=== PATIENT | female | born 1965 | race Caucasian/White ===

== ENCOUNTER 2017-04-10 16:23 | Emergency (ER) | payer MEDICAID ==
[2017-04-10 17:09] VITALS: BP 123/79; TEMP 98; O2SAT 99
[2017-04-10] MEDS ORDERED: Naproxen 550 mg Tab PO STA (19:46)
--- NOTE | 2017-04-10 19:50 | C.PDOC ---
History Of Present Illness 51yo female, presents to ER with complaints of right upper jaw and gum pain, ongoing for the past 2 months but worse since yesterday. Patient states she had a crown placed on one of her teeth on her left side and she has been chewing mostly on her right side. Patient states she took Tylenol yesterday and today with no relief of pain. She has no other complaints. Time Seen by Provider: 04/10/17 19:22 Chief Complaint (Nursing): Dental Pain History Per: Patient History/Exam Limitations: no limitations Onset/Duration Of Symptoms: Persistent Current Symptoms Are (Timing): Still Present Quality: Positive for: "Pain" Past Medical History Reviewed: Historical Data, Nursing Documentation, Vital Signs Vital Signs: Last Vital Signs Temp 98.0 F 04/10/17 17:06 Pulse 76 04/10/17 20:05 Resp 20 04/10/17 20:05 BP 123/79 04/10/17 17:06 Pulse Ox 99 04/10/17 20:05 - Medical History PMH: No Chronic Diseases Surgical History: - [facility] Procedures OTHER SKIN & SUBQ I D (11/01/12) TETANUS TOXOID ADMINIST (11/01/12) - Social History Hx Tobacco Use: No Hx Alcohol Use: No Hx Substance Use: No - Immunization History Hx Tetanus Toxoid Vaccination: No Hx Influenza Vaccination: No Hx Pneumococcal Vaccination: No Review Of Systems Constitutional: Negative for: Fever ENT: Positive for: Other (right sided dental pain) Physical Exam - Physical Exam Appears: Non-toxic Skin: Warm, Dry Oral Mucosa: Moist Teeth: Normal Dentition, Tender To Palpation (right upper molars) Gingiva: Normal Appearing, No Erythema, No Swelling ED Course And Treatment O2 Sat by Pulse Oximetry: 99 (RA) Pulse Ox Interpretation: Normal Medical Decision Making Medical Decision Making: Impression: Dental pain x 2 months Plan: -- Patient advised to alternate tylenol and motrin every 6 hours and to follow up with dentist in 1-2 days. Disposition - Disposition Disposition: HOME/ ROUTINE Disposition Time: 20:04 Condition: GOOD Additional Instructions: Alternate Tylenol and Motrin every 4 hours. FOllow up with Dentist s soon as possible. Try not to eat alll the time on right side only. Prescriptions: Acetaminophen [Tylenol 325mg tab] 650 mg PO Q6 #30 tab Ibuprofen [Motrin] 600 mg PO TID #30 tab Instructions: Dental Pain (DC) Forms: [facility] (Macedonian), General Discharge Instructions - Clinical Impression Clinical Impression: Pain, dental - PA / [employer] / Resident Statement MD/DO has reviewed & agrees with the documentation as recorded. - Scribe Statement The provider has reviewed the documentation as recorded by the Scribe (Nichole France) Provider Attestation: All medical record entries made by the Scribe were at my direction and personally dictated by me. I have reviewed the chart and agree that the record accurately reflects my personal performance of the history, physical exam, medical decision making, and the department course for this patient. I have also personally directed, reviewed, and agree with the discharge instructions and disposition.
[2017-04-10] MEDS ORDERED: Naproxen 550 mg Tab PO ONE (20:00)
[2017-04-10 20:06] VITALS: PULSE 76; RESP 20
== END 2017-04-10 20:06 | disposition home or self-care (01) ==
LOC: C.ER 16:23
DX: K08.89 Other specified disorders of teeth and supporting structures (principal)